=== PATIENT | female | born 1945 | race Caucasian/White ===

== ENCOUNTER 2022-06-21 10:27 | Outpatient (CLI) | payer MEDICARE, SELFPAY ==
--- NOTE | 2022-06-24 15:02 | WPDHOLTEREM ---
Holter/Event Monitor Holter/Event Monitor Date of procedure: 07/22/22 Holter/Event Procedure: 48 Hr Holter Monitor Indications: Palpitations Conclusion: 1. 48 hour holter monitor on 07/22/22. 2. Predominant rhythm is sinus rhythm. HR range 45-132 bpm; average HR 74 bpm. 3. There are 173 premature supraventricular complexes and 5 supraventricular couplets. There are 3 episodes of atrial tachycardia, fastest at 169 bpm and longest lasting 6 beats. 4. There are 899 premature ventricular complexes and 3 ventricular trigeminy. No ventricular tachycardia. 5. No sinoatrial or atrioventricular blocks. No significant pauses greater than 2 seconds. 6. Patient reports 1 episode of symptom of heart beating in throat and pain on back of head which demonstrate sinus rhythm at 73 bpm and 1 PVC.
== END 2022-06-21 10:28 | disposition home or self-care (01) ==
PROVIDERS: PCP Family Medicine; Visit Provider Family Medicine
DX: R00.2 Palpitations (principal)
CPT/HCPCS: 93225; 93226

== ENCOUNTER 2022-07-19 11:27 | Outpatient (CLI) | payer MEDICARE, SELFPAY ==
--- NOTE | ~2022-07-19 | US_ITS ---
EXAMINATION: US carotid duplex BI DATE: 07/19/2022 12:22 INDICATION: Dizziness TECHNIQUE: Grayscale, color Doppler, and pulsed Doppler images of the cervical carotid arteries were obtained. The degree of vessel stenosis is placed in one of the following categories: normal, <50%, 5 0-69%, >=70% but less than near-occlusion, near-occlusion, or total occlusion. Note that percent sten osis relative to normal distal artery lumen diameter is indirectly measured from velocity measurement s as described by Wilfrido, et al. Radiology 2003; 229:340-346. Notes: Normal: Peak systolic velocity <125 centimeters/sec and no plaque <50%. Peak systolic velocity <125 ( EDV <40; ICA/CCA PSV ratio <2.0; used these factors only a tandem lesions or low cardiac output or co ntralateral disease) 50-69 %: PSV 125-230 (EDV 40-100; ratio 2-4) >= 70% but less than near occlusion: PSV greater than 230 (EDV > 100; ratio> 4.0) Near Occlusion: PSV that is variable; markedly narrowed lumen Occlusion: Absent flow on color/spectral Doppler and no lumen on stratton scale. COMPARISON: None. FINDINGS: RIGHT: The right common carotid artery (CCA) peak systolic velocity (PSV) is 65 cm/s. The right internal car otid artery (ICA) PSV is 76 cm/s. The right ICA end-diastolic velocity (EDV) is 18 cm/s. The right IC A/CCA PSV ratio is 1.2. The external carotid artery (ECA) PSV is 96 cm/s. There is antegrade flow in the right vertebral artery. LEFT: The left CCA PSV is 71 cm/s. The left ICA PSV is 78 cm/s. The left ICA EDV is 19 cm/s. The left ICA/C CA PSV ratio is 1.1. The ECA PSV is 80 cm/s. There is antegrade flow in the left vertebral artery. IMPRESSION: 1. Less than 50% stenosis in the right internal carotid artery by sonographic criteria. 2. Less than 50% stenosis in the left internal carotid artery by sonographic criteria. Reviewed, dictated and finalized at location B. IMPRESSION: 1. Less than 50% stenosis in the right internal carotid artery by sonographic [place]. 2. Less than 50% stenosis in the left internal carotid artery by sonographic angel meeks.
== END 2022-07-19 11:28 | disposition home or self-care (01) ==
PROVIDERS: PCP Family Medicine; Visit Provider Family Medicine
DX: R42 Dizziness and giddiness (principal); I65.23 Occlusion and stenosis of bilateral carotid arteries
CPT/HCPCS: 93880